=== PATIENT | male | born 1970 | race Hispanic/Latino ===

== ENCOUNTER 2020-06-07 10:37 | Inpatient (IN) | payer OTHER, SELFPAY ==
[2020-06-07] VITALS (10 sets, daily range): BP systolic 108–134; BP diastolic 65–82; PULSE 72–89; RESP 18–24; TEMP 37.1–37.6; O2SAT 92–100
--- NOTE | ~2020-06-07 | CT_ITS ---
EXAMINATION: CTA chest PE protocol EXAM DATE: 06/07/2020 11:42 INDICATION: Shortness of breath, chest plane. COVID 19. TECHNIQUE: Spiral CTA of the chest (pulmonary arteries) was performed with 100 cc Omnipaque 350 intr avenous contrast injection. Images were acquired during the pulmonary arterial phase. Coronal maxi mum intensity projection 3D-reconstructions were created by the technologist on dedicated workstation . Axial, coronal and sagittal reformatted images were reviewed. The dose-length product (DLP) for t his examination was 339.03 mGy-cm. The exposure was tailored according to patient size (auto mA exp osure control), and iterative reconstruction (ASIR) was used as additional dose reduction technique. There is no prior study for comparison. FINDINGS: There are no pulmonary emboli in the 1st through 3rd order (central and interlobar) pulmon nikko arteries. Some loss of attenuation in the segmental pulmonary arteries due to respiratory motion , but no intraluminal filling defects suspected. No thoracic aortic dissection. Bilateral patchy peripheral posterior predominant groundglass opacities Appearance is fairly typical of early stage COVID 19-induced acute lung injury. Less likely acute possibilities include influenz a, pulmonary edema or hemorrhage. Some chronic processes that can have this appearance include crypto genic organizing pneumonia, desquamative interstitial pneumonia, nonspecific interstitial pneumonia, drug toxicity, connective tissue disease. Please clinically correlate and test as appropriate. There are no pleural or pericardial effusions. Tracheobronchial tree is patent. There is no media stinal, hilar or axillary lymphadenopathy. There is no pneumothorax. Heart normal in size. No e vidence of coronary arterial calcification. Right liver lobe lesion with peripheral nodular complete enhancement consistent with hemangioma measuring about 2 cm. The bones are unremarkable. IMPRESSION: 1. No pulmonary emboli. 2. Patchy peripheral and posterior predominant groundglass opacities, appearance consistent with giv en diagnosis of COVID 19. Reviewed, dictated and finalized at location A. IMPRESSION: 1. No pulmonary emboli. 2. Patchy peripheral and posterior predominant groundglass opacities, appearan ce consistent with given diagnosis of COVID 19.
--- NOTE | ~2020-06-07 | XR_ITS ---
XR chest 1V portable DATE: 06/07/2020 11:24 INDICATION: Chest pain. Covid positive patient. TECHNIQUE: Portable upright AP chest on 06/07/2020 at 1119 hours COMPARISON: None FINDINGS: Normal heart size. Minimal infiltrate and/or atelectasis is suggested at the left lung base . The lungs otherwise appear clear. No pulmonary vascular congestion. There is slight if any pleural effusion. No pneumothorax. Other than scoliosis, which may be positional, no significant skeletal abnormality. IMPRESSION: Minimal infiltrate or atelectasis at the left lung base, left lower lobe Reviewed, dictated and finalized at location B.
--- NOTE | 2020-06-07 10:53 | ECG_ITS ---
Measurements Intervals [place] Rate: 85 P: 43 MI: 142 QRS: 27 QRSD: 92 T: 27 QT: 355 QTc: 423 Interpretive Statements SINUS RHYTHM POSSIBLE LEFT ATRIAL ENLARGEMENT INCOMPLETE RIGHT BUNDLE BRANCH BLOCK DELAYED PRECORDIAL R/S TRANSITION BASELINE ARTIFACT- I, III, AVR, AVL, AVF, V1-V3 BORDERLINE ECG Electronically Signed On 06-07-2020 11:26:15 CDT by Carlos Brito D.O.
[2020-06-07 11:04] LABS: Basophils Percent Auto 0.4 % (0.2-1.2); Eosinophils Percent Auto 0.4 % (0-4.4); Hematocrit 41.8 % (42.0-52.0); Hemoglobin 14.4 g/dL (14.0-18.0); Immature Granulocyte Absolute 0.01 K/mm3 (0.00-0.031); Immature Granulocyte Percent A 0.2 % (0-0.5); Lymphocytes Absolute Auto 0.99 K/mm3 (0.9-3.2); Lymphocytes Percent Auto 18.3 % (18.3-44.2); Mean Corpuscular HGB Conc 34.4 g/dl (32-36); Mean Corpuscular Hemoglobin 30.1 pg (26-34); Mean Corpuscular Volume 87.3 fl (80-100); Mean Platelet Volume 11.5 fl (7.4-10.4); Monocytes Absolute Auto 0.4 K/mm3 (0.1-0.6); Monocytes Percent Auto 6.7 % (2.6-8.5); Platelet Count Result 173 k/mm3 (150-375); Red Blood Count 4.79 M/mm3 (4.6-6.20); Red Cell Distribution Width 12.9 % (11.5-14.5); White Blood Count 5.4 K/mm3 (4.5-10.0)
[2020-06-07 11:14] LABS: INR 0.9; Partial Thromboplastin Time 32.6 SECONDS (22.3-36.8); Prothrombin Time 12.3 Seconds (11.1-14.7)
[2020-06-07 11:15] LABS: Blood Urea Nitrogen 14 mg/dL (9-20); Calcium 8.2 mg/dL (8.4-10.2); Carbon Dioxide 26 mmol/L (22-30); Chloride 104 mmol/L (98-107); Estimated CRCL calculation 86 ml/min; Estimated Glomerular Filt Rate > 60; Glucose 116 mg/dL (75-110); Potassium 3.5 mmol/L (3.4-5.0); Sodium 138 mmol/L (137-145)
[2020-06-07 11:24] LABS: D Dimer 0.37 ug/mL (<0.48)
[2020-06-07 11:28] LABS: Troponin I < 0.012 ng/mL (0.000-0.034)
[2020-06-07] MEDS: SODIUM CHLORIDE 0.9% IV 1,000 ML 999 ML IV CONT (11:49)
--- NOTE | 2020-06-07 12:04 | PC.NURSE ---
pT REFUSING TYLENOL AT THIS TIME. pT HAD 1000MG OF TYLENOL AT 1100 TODAY, JUSTYNA Navarro made aware.
--- NOTE | 2020-06-07 12:49 | ED.GENADULT ---
HPI - General Adult General Chief complaint: Chest Pain <Brisa Ulloa PA-C - Last Filed: 06/07/20 13:41> Stated complaint: Chest Pain, Headache <Brisa Ulloa PA-C - Last Filed: 06/07/20 13:41> Time Seen by Provider: 06/07/20 11:04 <Brisa Ulloa PA-C - Last Filed: 06/07/20 13:41> Source: patient and family <MIRIAM El Last Filed: 06/07/20 13:41> Mode of arrival: ambulatory <MIRIAM El Last Filed: 06/07/20 13:41> Limitations: no limitations <Brisa Ulloa PA-C - Last Filed: 06/07/20 13:41> History of Present Illness HPI narrative: Patient diagnosed with COVID19 on 06-03-2020 presents with chief complaint of shortness of breath and chest pain with breathing that began today. Patient has hypothyroidism but denies history of past heart attack or stroke. Patient denies any recent travel and states that he believes he contracted COVID from work. Patient denies wheezing. Patient states that he has had some low-grade fever that has not been present over the past few days and his states that she has been giving him Tylenol at home for headaches body aches and fever. She states that she has been trying to encourage hydration but the patient has been drinking with fluids over the past day or so. Patient reports diffuse frontal headache. He denies neck or back pain or loss of range of motion to spine. Patient denies nausea, vomiting, diarrhea or abdominal pain. <Brisa Ulloa PA-C - Last Filed: 06/07/20 13:41> Related Data Allergies/adverse reactions: Allergies Allergy/AdvReac Type Severity Reaction Status Date / Time No Known Allergies Allergy Verified 06/07/20 10:52 <Brisa Ulloa PA-C - Last Filed: 06/07/20 13:41> Review of Systems Review of Systems: Narrative: CONSTITUTIONAL: Denies fever, chills, or sweats. EYES: Denies visual changes, redness, or discharge. ENT: Denies rhinorrhea, congestion, sore throat, or otalgia. CARDIOVASCULAR: Reports chest pain with inspiration denies , palpitations, or edema. RESPIRATORY: Reports dyspnea and pain with inspiration denies cough GASTROINTESTINAL: Denies abdominal pain, nausea, vomiting, or diarrhea. GENITOURINARY: Denies dysuria or hematuria. SKIN: Denies rash or itching. MUSCULOSKELETAL: Denies back pain, joint pain, or myalgia. NEUROLOGIC: Reports diffuse frontal headache denies numbness, changes in vision or hearing, dizziness, or weakness. PSYCHIATRIC: Denies anxiety or depression. <Brisa Ulloa PA-C - Last Filed: 06/07/20 13:41> [facility] Past Medical History Medical History: Medical History Hypothyroidism <Brisa Ulloa PA-C - Last Filed: 06/07/20 13:41> Surgical History Surgical History: Surgical History (Updated 06/07/20 @ 21:32 by Jacquie Colon NP) History of tonsillectomy <Brisa Ulloa PA-C - Last Filed: 06/07/20 13:41> Family History Family History: Family History Grandparent Family history of thyroid disease Father Diabetes mellitus Family history of Rian's chorea Cerebrovascular accident Carcinoma of colon Hypertension Family history of malignant neoplasm of gastrointestinal tract Mother Asthma Family history of hearing loss <Brisa Ulloa PA-C - Last Filed: 06/07/20 13:41> Social History Social History: Social History (Updated 06/07/20 @ 21:33 by Jacquie Colon NP) Social History: patient is and he lives with his . His is his durable power attorney lawyer for healthcare. The patient desires to be a full code. The patient has 1 biological child and he has 2 step children. 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 He is a social drinker. He used to smoke. No marijuana or illicit drugs. Smoking status: Former smoker Tobacco type: cigarettes Smoking end date: 06/01/10 Alcohol
[2020-06-07] MEDS: ONDANSETRON INJ 4 MG/2 ML VIAL IV PUSH (14:07)
[2020-06-07 14:36] LABS: Troponin I < 0.012 ng/mL (0.000-0.034)
--- NOTE | 2020-06-07 15:37 | ADMGEN ---
This patient, Darshan Amos, was admitted to 3 Med Surg Room 326-01. Patient/family oriented to hospital policies and general routines including ID bracelet, bed and alarms, visiting hours, pain management, procedures, bathroom and other care routines, personal items, smoking policy, room service/diet, and visiting hours. Valuables list has been completed. Information on how to activate the Rapid Response Team has been discussed. Patient/Family are encouraged to report perceived risks to care and to ask questions if they do not understand what they are told or what they should do.
[2020-06-07 17:56] LABS: Troponin I < 0.012 ng/mL (0.000-0.034)
--- NOTE | 2020-06-07 21:28 | PM.IMHP ---
H&P: HPI History of Present Illness Chief complaint: COVID WITH DYSPNEA Narrative: Darshan Amos is a 49 year old male Who tested positive for covid 19 on 06/03/2020. He worked with another gentleman that was ill and found to be positive for COVID-19 as well. The patient has been short of breath. He said this is day 8 of his illness. He said that his also tested positive for it as well. He tells me he is now running a low-grade fever and has been taking Tylenol at home. He has not needed any oxygen until today. It was noted that down in the emergency room he had a 92% on room air but it was felt that it was air. So took his oxygen off and read his O2 saturation and it was 92%. I then started the patient on Decadron And remdesivir antiviral. as per protocol. The patient is requesting Tylenol. He has fever and chills. Decreased appetite decreased taste and decreased smell. He has a dry nonproductive cough as well. He has headaches. No nausea vomiting or diarrhea. His temperature was noted to be 98.7 upon arrival. Date of service 06/07/2020 Review of Systems Review of Systems: All systems reviewed & are unremarkable except as noted in HPI and below Constitutional: Constitutional: Reports as per HPI and Reports no additional constitutional complaints Eyes: Eyes: Reports as per HPI and Reports no additional eye complaints ENT: Reports system reviewed and no additional complaints, except as documented and Reports Normal hearing present Cardiovascular: Cardiovascular: Reports no additional cardiovascular complaints Respiratory: Respiratory: Reports no additional respiratory complaints and Reports no additional respiratory complaints Gastrointestinal: Gastrointestinal: Reports as per HPI and Reports no additional gastrointestinal complaints Musculoskeletal: Musculoskeletal: Reports no additional musculoskeletal complaints Integumentary/Breasts: Skin/Breast: Reports system reviewed and no additional complaints, except as docu and Reports as per HPI Neurologic: Reports system reviewed and no additional complaints, except as documented, Reports as per HPI and Reports Normal hearing present Psychiatric: Psychiatric: Reports no additional psychiatric complaints and Reports as per HPI Endocrine: Endocrine: Reports no additional endocrine complaints Hematologic/Lymphatic: Hematologic/Lymphatic: Reports no additional hematologic/lymphatic complaints Allergic/Immunologic: Allergic/Immunologic: Reports no additional allergic/immunologic complaints PMFSH Past Medical History Medical History Hypothyroidism Surgical History Surgical History (Updated 06/07/20 @ 21:32 by Jacquie Colon NP) History of tonsillectomy Family History Family History Grandparent Family history of thyroid disease Father Diabetes mellitus Family history of Rian's chorea Cerebrovascular accident Carcinoma of colon Hypertension Family history of malignant neoplasm of gastrointestinal tract Mother Asthma Family history of hearing loss Social History Social History (Updated 06/07/20 @ 21:33 by Jacquie Colon NP) Social History: patient is and he lives with his . His is his durable power state attorney for healthcare. The patient desires to be a full code. The patient has 1 biological child and he has 2 step children. 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 He is a social drinker. He used to smoke. No marijuana or illicit drugs. Smoking status: Former smoker Tobacco type: cigarettes Smoking end date: 06/01/10 Alcohol intake: never Substance use: never Substance use type: does not use Gender identity (if verbalized by the patient): Male Spiritual care concerns: No Meds Home Medications and Allergies Home Medications Medication Instructions Recorded
[2020-06-07 22:14] LABS: Alanine Aminotransferase 62 U/L (4-50); Estimated CRCL calculation 86 ml/min; Estimated Glomerular Filt Rate > 60
[2020-06-07] MEDS: DEXAMETHASONE SOD PHOS INJ 4 MG/ML VIAL 6 MG IV PUSH (22:27)
[2020-06-08] VITALS (14 sets, daily range): BP systolic 113–133; BP diastolic 64–79; PULSE 62–76; RESP 16–18; TEMP 36.1–37; O2SAT 91–98
[2020-06-08] MEDS: LEVOTHYROXINE SODIUM 75 MCG TABLET PO (06:10)
[2020-06-08 06:18] LABS: Basophils Percent Auto 0.6 % (0.2-1.2); Hematocrit 40.1 % (42.0-52.0); Hemoglobin 13.5 g/dL (14.0-18.0); Immature Granulocyte Absolute 0.01 K/mm3 (0.00-0.031); Immature Granulocyte Percent A 0.3 % (0-0.5); Lymphocytes Absolute Auto 0.56 K/mm3 (0.9-3.2); Lymphocytes Percent Auto 17.6 % (18.3-44.2); Mean Corpuscular HGB Conc 33.7 g/dl (32-36); Mean Corpuscular Hemoglobin 30.1 pg (26-34); Mean Corpuscular Volume 89.5 fl (80-100); Mean Platelet Volume 11.9 fl (7.4-10.4); Monocytes Absolute Auto 0.2 K/mm3 (0.1-0.6); Monocytes Percent Auto 5.6 % (2.6-8.5); Neutrophils Absolute Auto 2.4 K/mm3 (1.3-6.7); Neutrophils Percent Auto 75.9 % (45.5-73.1); Platelet Count Result 187 k/mm3 (150-375); Red Blood Count 4.48 M/mm3 (4.6-6.20); Red Cell Distribution Width 12.9 % (11.5-14.5); White Blood Count 3.2 K/mm3 (4.5-10.0)
[2020-06-08 06:34] LABS: Alanine Aminotransferase 59 U/L (4-50)
[2020-06-08 06:39] LABS: Alanine Aminotransferase 58 U/L (4-50); Alkaline Phosphatase 80 U/L (38-126); Aspartate Amino Transferase 50 U/L (17-59); Bilirubin,Total 0.2 mg/dL (0.2-1.3); Blood Urea Nitrogen 17 mg/dL (9-20); CRP 7.2 mg/dL (<1.0); Calcium 8.5 mg/dL (8.4-10.2); Carbon Dioxide 28 mmol/L (22-30); Chloride 105 mmol/L (98-107); Estimated CRCL calculation 86 ml/min; Estimated Glomerular Filt Rate > 60; Glucose 145 mg/dL (75-110); Magnesium 2.4 mg/dL (1.6-2.3); Potassium 4.3 mmol/L (3.4-5.0); Sodium 141 mmol/L (137-145)
[2020-06-08] MEDS: PANTOPRAZOLE SOD SESQUIHYDRATE 20 MG TAB PO (09:47)
[2020-06-08] MEDS: DEXAMETHASONE SOD PHOS INJ 4 MG/ML VIAL 6 MG IV PUSH (12:21)
--- NOTE | 2020-06-08 20:08 | PM.IMPN ---
Progress Note: A&P Assessment and Plan (1) COVID-19: Code(s): U07.1 - COVID-19 Status: Acute Assessment and Plan: -----Pt is off o2 and symptoms have improved. Because of his mild symptoms without o2 reqiureiments, remdesivir has been stopped to avoid potential side effects without much benefit at this point. Will continue decadron. If pt worsens remdesivir can be revisited but at that time. I have spoken to the patient about this and he agrees with treatment plan. Will observe overnight and likely d/c home tomorrow. d-dimber neg, crp midly elevated, AST normal, ALT very minimally elevated. CT reviewed. Prognosis is good. (2) Acute dyspnea: Code(s): R06.00 - Dyspnea, unspecified Status: Acute Assessment and Plan: -----resolved. (3) Hypothyroidism: Code(s): E03.9 - Hypothyroidism, unspecified Status: Acute Assessment and Plan: -----Continue levothyroxine. Time Spent With Patient Time with patient: 25 - 35 minutes Subjective Date/time seen: 06/08/20 20:08 Interval history: Pt is a 49 y/o male here for viral PNA, covid +. Pt feels much better today since being hosptilized. he has not felt this good since his symptoms began. He is not having any CP, nausea, vomiting, fevers, chills, abd pain and minimal SOB. We had a long discussion about his tx plan and severity of illness. He agreed. Review of Systems Review of Systems: All systems reviewed & are unremarkable except as noted in HPI and below Exam Narrative: Exam Narrative: General: Well developed well nourished patient resting in bed in NAD HEENT: normocephalic Neck: supple Neuro: Alert and oriented x4 CV:RRR Resp:CTA Abd: Soft, non distended. No pain to palpation. Positive bowel sounds Extremities: No swelling, erythema, or pain to palpation. Objective Data Vital Signs Vital Signs: Vital Signs - 24 hr 06/07/20 22:00 06/08/20 00:00 06/08/20 02:00 Temperature 99.6 F 98.6 F Pulse Rate 78 73 72 Respiratory Rate 18 16 Blood Pressure 125/65 127/70 Pulse Oximetry 96 97 06/08/20 03:24 06/08/20 03:26 06/08/20 04:00 Temperature Pulse Rate 68 Respiratory Rate Blood Pressure Pulse Oximetry 97 98 06/08/20 06:00 06/08/20 08:00 06/08/20 10:00 Temperature 98.3 F 97.0 F L Pulse Rate 68 67 69 Respiratory Rate 18 16 Blood Pressure 120/70 113/64 Pulse Oximetry 95 98 06/08/20 12:00 06/08/20 18:00 Temperature 97.4 F L 96.9 F L Pulse Rate 76 74 Respiratory Rate 18 16 Blood Pressure 128/72 119/67 Pulse Oximetry 93 97 Intake/Output Intake/Output: Intake & Output 06/05/20 06/06/20 06/07/20 06/08/20 23:59 23:59 23:59 23:59 Intake Total 1670 2080 Output Total 400 700 Balance 1270 1380 Meds/Results Medications: Active Medications Generic Name Dose Route Start Last Admin Trade Name Freq PRN Reason Stop Dose Admin Acetaminophen 650 mg 06/07/20 20:35 Tylenol Tablet PO Q4H PRN Mild Pain (1-3) or Fever Dexamethasone Sodium Phosphate 6 mg 06/07/20 21:50 06/08/20 12:21 Decadron 4 Mg/Ml Inj IV PUSH 6 mg DAILY JJ Administration Acetaminophen 1,000 mg in 100 mls @ 400 mls/hr 06/07/20 20:46 06/07/20 21:15 Ofirmev 1,000 Mg Ivpb IVPB 06/09/20 00:01 Infused Q6HR PRN Infusion Pain (4-6) Levothyroxine Sodium 75 mcg 06/08/20 06:30 06/08/20 06:10 Synthroid PO 75 mcg DAILY@0630 JJ Administration Pantoprazole Sodium 20 mg 06/08/20 09:00 06/08/20 09:47 Protonix PO 20 mg QAM JJ Administration Radiology Results: ITS Impressions Chest X-Ray 06/07/20 11:25 IMPRESSION: Minimal infiltrate or atelectasis at the left lung base, left lower lobe Chest CTA 06/07/20 11:49 IMPRESSION: 1. No pulmonary emboli. 2. Patchy peripheral and posterior predominant groundglass opacities, appearance consistent with given diagnosis of COVID 19. Labs Labs: Laboratory Results - last
[2020-06-09] VITALS: PULSE 56
[2020-06-09 02:00] VITALS: BP 116/71; PULSE 59; RESP 16; TEMP 36.4; O2SAT 93
[2020-06-09 04:00] VITALS: PULSE 60
[2020-06-09 06:00] VITALS: BP 115/69; PULSE 60; RESP 16; TEMP 36.5; O2SAT 94
[2020-06-09] MEDS: LEVOTHYROXINE SODIUM 75 MCG TABLET PO (06:31)
[2020-06-09 07:05] LABS: Alanine Aminotransferase 45 U/L (4-50); Albumin Level 3.8 g/dL (3.5-5.1); Alkaline Phosphatase 74 U/L (38-126); Anion Gap 13.9 mmol/L (7-16); Aspartate Amino Transferase 35 U/L (17-59); Bilirubin,Total 0.3 mg/dL (0.2-1.3); Blood Urea Nitrogen 18 mg/dL (9-20); CRP 4.4 mg/dL (<1.0); Calcium 8.6 mg/dL (8.4-10.2); Carbon Dioxide 24 mmol/L (22-30); Chloride 105 mmol/L (98-107); Estimated CRCL calculation 98 ml/min; Estimated Glomerular Filt Rate > 60; Glucose 151 mg/dL (75-110); Lactate Dehydrogenase 489 U/L (313-618); Potassium 3.9 mmol/L (3.4-5.0); Sodium 139 mmol/L (137-145)
[2020-06-09] MEDS: PANTOPRAZOLE SOD SESQUIHYDRATE 20 MG TAB PO (08:26)
[2020-06-09] MEDS: DEXAMETHASONE SOD PHOS INJ 4 MG/ML VIAL 6 MG IV PUSH (08:26)
[2020-06-09 09:15] VITALS: O2SAT 92
[2020-06-09 10:24] VITALS: TEMP 36.6
--- NOTE | 2020-06-09 11:14 | PM.DS ---
DS: Admitting Diagnosis Admitting Diagnosis Admitting Diagnosis: COVID-19 DS: Discharge Diagnosis Discharge Diagnosis (1) COVID-19: Code(s): U07.1 - COVID-19 Status: Acute Assessment and Plan: -----Pt was able to be weaned off o2 and symptoms have improved. Because of his mild symptoms without o2 reqiureiments, remdesivir was stopped after inital dose to avoid potential side effects without much benefit at this point. decadron was continued. Covid labs (CRP, ALT, LDH, d-dimer) were all normal on discharge except CRP which had improved from admission. he is to f/u with his pcp. (2) Acute dyspnea: Code(s): R06.00 - Dyspnea, unspecified Status: Acute Assessment and Plan: -----resolved. (3) Hypothyroidism: Code(s): E03.9 - Hypothyroidism, unspecified Status: Acute Assessment and Plan: -----Continue levothyroxine. (4) Acute respiratory failure with hypoxia: Code(s): J96.01 - Acute respiratory failure with hypoxia Status: Acute DS: Summary Hospital Course Reason for hospitalization: COVID-19 pneumonia Hospital Course: patient is a 49-year-old male who presented emergency room after being diagnosed with COVID outpatient with increasingly shortness of breath and chest pain. Vitals in the ER were stable, respiratory rate a little elevated 24. White blood cell count mildly low 3.2. BMP within normal limits. Ferritin and D-dimer were normal. ALT was only mildly high at 59. CRP mildly high at 7.2. CTA of the chest showed no pulmonary emboli with patchy peripheral and posterior ground-glass opacities consistent with COVID-19. patient was admitted to the hospitalist service and provided supplemental oxygen. He was initially placed on 1 does of remdesivir and dexamethasone but because of his mild symptoms, the remdesivir was discontinued. He was continued on dexamethasone and did well with this treatment. The day of discharge she was walking around the room without any shortness of breath or oxygen. He said he felt better than he had in days and was ready to go home. Patient was educated about the worrisome signs and symptoms to come back to emergency room for and was discharged in stable condition. He was educated on quarantine guidelines. Status at Discharge Functional status at discharge: independent ambulation Overall status at discharge: patient is back to baseline Time Spent with Patient Time attestation: Total time spent providing and/or coordinating discharge services:36 min Time spent: Greater than 30 minutes Exam Narrative: Exam Narrative: General: Well developed well nourished patient resting in bed in NAD HEENT: normocephalic Neck: supple Neuro: Alert and oriented x4 CV:RRR Resp:CTA Abd: Soft, non distended. No pain to palpation. Positive bowel sounds Extremities: No swelling, erythema, or pain to palpation. DS: Data Data Completed and Pending Labs on day of discharge: Labs from last 24 hours 06/09/20 06/09/20 06:21 06:21 Sodium 139 Potassium 3.9 Chloride 105 Carbon Dioxide 24 Anion Gap 13.9 BUN 18 Creatinine 0.70 Estim Creat Clear Calc 98 Estimated GFR > 60 Glucose 151 H Calcium 8.6 Ferritin 238.00 Total Bilirubin 0.3 Direct Bilirubin 0.0 AST 35 ALT 45 Alkaline Phosphatase 74 Lactate Dehydrogenase 489 C-Reactive Protein 4.4 H Total Protein 7.0 Albumin 3.8 Discharge Plan Discharge Attending physician on discharge: Stevie Rob Consulting providers: Brisa Ulloa Discharging Clinician: Mary Calhoun Patient Disposition: Home, Self-Care Activity: as tolerated Diet: regular Discharge Instructions: -Take all of your medications even if you start to feel better - follow up with your primary care physician in 1-2 weeks about this stay - continue isolating yourself and your family. According to the CDC recommendations, you
== END 2020-06-09 13:00 | disposition home or self-care (01) | DRG 177 ==
LOC: ANHED 13:14 → ANH3MEDSUR 13:25
PROVIDERS: Nurse Practitioner; Physician Assistant; Admitting Provider Family Medicine; Emergency Provider Emergency Medicine; PCP Family Medicine; Visit Provider Family Medicine
DX: U07.1 COVID-19 (principal); J96.01 Acute respiratory failure with hypoxia; J12.89 Other viral pneumonia; E03.9 Hypothyroidism, unspecified; Z87.891 Personal history of nicotine dependence
CPT/HCPCS: 36415; 71045; 71275; 80048; 80053; 80076; 82565; 82728; 83615; 83735; 84443; 84460; 84484; 85025; 85380; 85610; 85730; 86140; 93005; 96360; 99285; A9270; G0378; J0131; J1100; J2405; J7030; J7050; Q9967

== ENCOUNTER → 2020-09-12 08:59 | Outpatient (CLI) | payer OTHER, SELFPAY ==
--- NOTE | ~2020-09-12 | CT_ITS ---
EXAMINATION: CT abdomen pelvis w con DATE: 09/12/2020 09:24 INDICATION: Left lower quadrant abdominal pain. TECHNIQUE: Computed tomography (CT) of the abdomen and pelvis was performed with 100 mL Omnipaque-350 intravenous contrast. Automated exposure control and iterative reconstruction technique were employe d. The dose-length product was 664.50 mGy-cm. COMPARISON: 01/11/2019 and 06/07/2020 FINDINGS: Unchanged 4-5 mm likely noncalcified granuloma in the right lower lobe. Minimal dependent atelectasis in the bilateral lower lobes. Heart size is normal. No pericardial or pleural effusion. Approximatel y 2.7 x 2.0 cm avidly enhancing hemangioma in the right hepatic lobe with during degrees of periphera l puddling of contrast on the current and prior studies. Gallbladder, spleen, pancreas, bilateral adr enal glands and kidneys are normal. There are few scattered colonic diverticula without adjacent infl ammatory change to suggest diverticulitis. No abnormal bowel wall thickening or obstruction. Normal g as-filled appendix which extends cephalad along the lateral margin of the second portion of the duode num. Suggestion of subtle stranding at the periphery of the otherwise normal-appearing bladder raisin g possibility of cystitis. No free intraperitoneal gas or fluid. No pathologically enlarged abdominal or pelvic lymphadenopathy. Mild thoracolumbar levocurvature with mild spondylosis. IMPRESSION: 1. Subtle stranding in the fat surrounding the bladder which could be related to cystitis. Correlate with urinalysis. 2. No other acute intra-abdominal/pelvic process. Reviewed, dictated and finalized at location B. IMPRESSION: 1. Subtle stranding in the fat surrounding the bladder which could be related t o cystitis. Correlate with urinalysis. 2. No other acute intra-abdominal/pelvic process.
== END ==
PROVIDERS: PCP Family Medicine; Visit Provider Surgery
DX: R10.32 Left lower quadrant pain (principal)
CPT/HCPCS: 74177; Q9967

== ENCOUNTER → 2020-09-20 10:50 | Outpatient (CLI) | payer OTHER, SELFPAY ==
--- NOTE | ~2020-09-20 | US_ITS ---
EXAMINATION: US abdomen limited EXAM DATE: 09/20/2020 12:02 INDICATION: epigastric abd pain R10.13 - Epigastric pain . TECHNIQUE: Multiple grayscale and Doppler images of the abdomen right upper quadrant were obtained (b y a technologist who performed the scan) and subsequently reviewed. Correlation is made to CT abdomen 09/12/2020, and another 01/11/2019. FINDINGS: The pancreatic head and body are normal in appearance. The pancreatic tail is not visualized. The l iver has normal echogenicity and contour. There is focal liver lesion measuring 2 cm. Liver lesions are nonspecific by ultrasound, but correlating with prior CT scans, most likely hemangioma. There is no evidence of intrahepatic biliary duct dilation. Portal venous flow was seen in the hepatopedal, normal direction and has normal Doppler waveform. No right-sided hydronephrosis. Common bile duct measures 4 mm, which is normal. The gallbladder wall is normal in thickness, with ex pected amount of distention. No sonographic evidence of pericholecystic fluid. There is no cholelit hiases. Several gallbladder polyps up to 4 mm, not clinically significant finding. Technologist donovan rming exam reports patient did not demonstrate sonographic Ann's sign. Please note that this sign is less reliable in patients who have received pain medication. IMPRESSION: No clinically significant findings. Reviewed, dictated and finalized at location B. [employer]PER[employer]
== END ==
PROVIDERS: PCP Family Medicine; Visit Provider Surgery
DX: R10.13 Epigastric pain (principal)
CPT/HCPCS: 76705

== ENCOUNTER 2021-10-06 10:23 | Emergency (ER) | payer OTHER, SELFPAY ==
[2021-10-06 10:34] VITALS: BP 139/71; PULSE 78; RESP 16; TEMP 36.1; O2SAT 99
--- NOTE | 2021-10-06 10:39 | ED.NAVMDI ---
HPI - Nausea/Vomiting/Diarrhea General Chief complaint: Nausea/Vomiting/Diarrhea Stated complaint: upset stomach/diarrhea/sore throat Time Seen by Provider: 10/06/21 10:32 Source: patient, RN notes reviewed and old records reviewed History of Present Illness HPI Narrative: 51-year-old male presents to [facility] with epigastric burning, nausea and diarrhea since Saturday. Patient started after his cooked a very greasy high-fat meal. Has felt feverish all day yesterday with increased burning. Has taken Tums with no relief. Complains of right upper quadrant, epigastric pain. Pain with palpation. Has a history of GERD, low testosterone and thyroid issues. Has had Covid in June 2020, has had a full immunization in January 2021 MD elicited complaint: nausea, vomiting, diarrhea and abdominal pain Related Data Allergies Allergy/AdvReac Type Severity Reaction Status Date / Time No Known Allergies Allergy Verified 10/06/21 10:44 Review of Systems Review of Systems: All systems reviewed & are unremarkable except as noted in HPI and below Constitutional: Constitutional: Reports as per HPI, Denies chills, Reports fever(s) and Denies weakness Eyes: Eyes: Reports no additional eye complaints ENT: Reports system reviewed and no additional complaints, except as documented Cardiovascular: Cardiovascular: Reports no additional cardiovascular complaints and Denies chest pain Respiratory: Respiratory: Reports no additional respiratory complaints, Denies cough, Denies dyspnea and Denies wheezing Gastrointestinal: Gastrointestinal: Reports as per HPI, Reports abdominal pain, Denies constipation, Reports diarrhea, Reports nausea and Reports vomiting Genitourinary: Genitourinary: Reports no additional male genitourinary complaints Musculoskeletal: Musculoskeletal: Reports no additional musculoskeletal complaints Integumentary/Breasts: Skin/Breast: Reports system reviewed and no additional complaints, except as docu Neurologic: Reports system reviewed and no additional complaints, except as documented Psychiatric: Psychiatric: Reports no additional psychiatric complaints Allergic/Immunologic: Allergic/Immunologic: Reports no additional allergic/immunologic complaints [facility] Past Medical History Medical History (Updated 10/06/21 @ 10:49 by Tara Chandler) COVID-19 Former smoker GERD (gastroesophageal reflux disease) Hypothyroidism Surgical History Surgical History History of tonsillectomy Family History Family History Grandparent Family history of thyroid disease Father Diabetes mellitus Family history of [place]'s chorea Cerebrovascular accident Carcinoma of colon Hypertension Family history of malignant neoplasm of gastrointestinal tract Mother Asthma Family history of hearing loss Social History Social History Social History: patient is and he lives with his . His is his durable power trademark attorney for healthcare. The patient desires to be a full code. The patient has 1 biological child and he has 2 step children. 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 He is a social drinker. He used to smoke. No marijuana or illicit drugs. Smoking status: Former smoker Tobacco type: cigarettes Smoking end date: 06/01/10 Alcohol intake: never Substance use: never Substance use type: does not use Additional occupation/education comments: Car sales Gender identity (if verbalized by the patient): Male Spiritual care concerns: No Comments At the time of my signature, I reviewed and agree with the nursing past medical, surgical, social, and family history. There is no relevant family history pertinent to the patient complaint. Exam Const: General: healthy appearing, no acute distress and alert Nutritional Appearan
== END 2021-10-06 10:47 | disposition short-term general hospital (02) ==
PROVIDERS: Emergency Provider Nurse Practitioner; PCP Family Medicine
DX: R10.31 Right lower quadrant pain (principal); Z87.891 Personal history of nicotine dependence; K21.9 Gastro-esophageal reflux disease without esophagitis; E03.9 Hypothyroidism, unspecified; Z86.16 Personal history of COVID-19
CPT/HCPCS: 99213; G0463

== ENCOUNTER 2021-10-06 11:11 | Emergency (ER) | payer OTHER, SELFPAY ==
--- NOTE | ~2021-10-06 | CT_ITS ---
EXAMINATION: CT abdomen pelvis w con DATE: 10/06/2021 14:07 INDICATION: Epigastric abdominal pain, fever, nausea TECHNIQUE: Computed tomography (CT) of the abdomen and pelvis was performed with 100 cc Omnipaque 350 intravenous contrast. Automated exposure control and iterative reconstruction technique were employe d. Exam dose: 330.74 mGy-cm total exam DLP. COMPARISON: 09/12/2020 CT abdomen pelvis FINDINGS: 5 mm peripheral lateral right lower lobe nodule (series 4 image 7). The lung bases consolid ation. Normal heart size. No pericardial or pleural effusion. Very small probable left hepatic cyst the liver, gallbladder, bile ducts, pancreas, pancreatic duct a nd spleen are otherwise unremarkable. Normal morphology of the adrenal glands. No renal mass lesion or urinary tract calculus or hydroureteronephrosis. The urinary bladder is unrem arkable. Normal prostate gland. Normal caliber of the abdominal aorta. No intraperitoneal or retroperitoneal or pelvic mass lesion or adenopathy or ascites. Normal appendix. Minimal colonic diverticulosis; no CT evidence of diverticulitis. No bowel obstructi on, bowel wall thickening, pneumatosis or intraperitoneal free air. No suspicious osteolytic or osteoblastic lesions. IMPRESSION: Normal appendix Minimal colonic diverticulosis Reviewed, dictated and finalized at [facility]. Reviewed, dictated and finalized at [facility]. L [facility]
[2021-10-06 11:26] VITALS: BP 116/77; PULSE 80; RESP 14; TEMP 36.1; O2SAT 99
[2021-10-06 11:47] LABS: Basophils Absolute Auto 0.1 K/mm3 (0.0-0.1); Eosinophils Absolute Auto 0.3 K/mm3 (0-0.3); Eosinophils Percent Auto 5.8 % (0-4.4); Hematocrit 42.4 % (42.0-52.0); Hemoglobin 14.5 g/dL (14.0-18.0); Immature Granulocyte Absolute 0.01 K/mm3 (0.00-0.031); Immature Granulocyte Percent A 0.2 % (0-0.5); Lymphocytes Percent Auto 25.5 % (18.3-44.2); Mean Corpuscular HGB Conc 34.2 g/dl (32-36); Mean Corpuscular Volume 90.6 fl (80-100); Mean Platelet Volume 10.7 fl (7.4-10.4); Monocytes Absolute Auto 0.6 K/mm3 (0.1-0.6); Monocytes Percent Auto 10.4 % (2.6-8.5); Neutrophils Absolute Auto 3.4 K/mm3 (1.3-6.7); Neutrophils Percent Auto 57.1 % (45.5-73.1); Platelet Count Result 218 k/mm3 (150-375); Red Blood Count 4.68 M/mm3 (4.6-6.20); Red Cell Distribution Width 12.9 % (11.5-14.5); White Blood Count 5.9 K/mm3 (4.5-10.0)
[2021-10-06 11:59] LABS: Alanine Aminotransferase 18 U/L (4-50); Albumin Level 4.3 g/dL (3.5-5.1); Alkaline Phosphatase 71 U/L (38-126); Anion Gap 8 mmol/L (8-16); Aspartate Amino Transferase 23 U/L (17-59); Bilirubin,Total 0.6 mg/dL (0.2-1.3); Blood Urea Nitrogen 21 mg/dL (9-20); Calcium 8.5 mg/dL (8.4-10.2); Carbon Dioxide 27 mmol/L (22-30); Chloride 103 mmol/L (98-107); Estimated CRCL calculation 69 ml/min; Estimated Glomerular Filt Rate > 60; Glucose 114 mg/dL (65-110); Lipase 88 U/L (23-300); Potassium 3.8 mmol/L (3.4-5.0); Sodium 138 mmol/L (137-145)
[2021-10-06 12:32] LABS: Add Urine Microscopic? YES; Appearance Urine Cloudy (Clear); Bilirubin Urine 1+ (Negative); Blood Urine Negative (Negative); Calcium Oxalate Crystals Urine Present /hpf; Color Urine Amber (Yellow); Glucose Urine UA Negative (Negative); Ketones Urine Trace mg/dL (Negative); Leukocyte Esterase Ur Negative LEU/UL (Negative); Mucus Urine Heavy /lpf; Nitrate Urine Negative (Negative); Protein Urine 2+ mg/dL (Negative); WBC Urine 0-3 /hpf
[2021-10-06 12:33] LABS: Specific Grav Ur 1.045 (1.001-1.035)
[2021-10-06 13:10] VITALS: BP 128/82; PULSE 64; RESP 14; TEMP 36.6; O2SAT 99
--- NOTE | 2021-10-06 13:54 | ECG_ITS ---
Measurements Intervals [place] Rate: 60 P: 49 [place]: 150 QRS: 2 QRSD: 106 T: 6 QT: 408 QTc: 410 Interpretive Statements SINUS RHYTHM INCOMPLETE RIGHT BUNDLE BRANCH BLOCK DELAYED PRECORDIAL R/S TRANSITION BORDERLINE T WAVE ABNORMALITY- INFERIOR LEADS BORDERLINE ECG Electronically Signed On 10-06-2021 15:07:04 GROUT PUMP OPERATOR by Carlos Brito D.O.
--- NOTE | 2021-10-06 13:57 | ED.ABDPAIN ---
HPI - Abdominal Pain General Chief Complaint: Abdominal Pain Stated Complaint: RUQ pain Time Seen by Provider: 10/06/21 13:08 Source: patient Mode of arrival: ambulatory Limitations: no limitations History of Present Illness HPI narrative: This is a 51 year old male that presents to the ER for epigastric abdominal pain ongoing over the last couple of days. Reports the pain is burning in nature. Associated with nausea. He was prescribed omeprazole for reflux in the past, but he has not taken this for months. Reports last night he has a fever. Denies vomiting, dysuria, or hematuria. Related Data Allergies Allergy/AdvReac Type Severity Reaction Status Date / Time No Known Allergies Allergy Verified 10/06/21 10:44 Review of Systems Review of Systems: CONSTITUTIONAL: Reports fever CARDIOVASCULAR: Denies chest pain RESPIRATORY: Denies dyspnea. GASTROINTESTINAL: Reports abdominal pain, nausea, and diarrhea. Denies vomiting GENITOURINARY: Denies dysuria or hematuria. All systems reviewed & are unremarkable except as noted in HPI and below PMFSH Past Medical History Medical History (Updated 10/06/21 @ 15:59 by Padmini Stephens PA-C) COVID-19 Former smoker GERD (gastroesophageal reflux disease) Hypothyroidism Surgical History Surgical History History of tonsillectomy Family History Family History Grandparent Family history of thyroid disease Father Diabetes mellitus Family history of Rian's chorea Cerebrovascular accident Carcinoma of colon Hypertension Family history of malignant neoplasm of gastrointestinal tract Mother Asthma Family history of hearing loss Social History Social History Social History: patient is and he lives with his . His is his durable power commercial real estate attorney for healthcare. The patient desires to be a full code. The patient has 1 biological child and he has 2 step children. 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 He is a social drinker. He used to smoke. No marijuana or illicit drugs. Smoking status: Former smoker Tobacco type: cigarettes Smoking end date: 06/01/10 Alcohol intake: never Substance use: never Substance use type: does not use Additional occupation/education comments: Car sales Gender identity (if verbalized by the patient): Male Spiritual care concerns: No Exam Narrative: GENERAL: Well-appearing, well-nourished, and in no acute distress. HEAD: Normocephalic, atraumatic. EYES: EOMI. CHEST: Clear to auscultation. No respiratory distress. No wheezes rales or rhonchi HEART: Regular rate and rhythm. No murmur heard. Normal peripheral pulses. ABDOMEN: Soft, nondistended, normal active bowel sounds. Tender to palpation in the epigastrium, without guarding. No CVA tenderness EXTREMITIES: Normal range of motion. No edema. SKIN: Warm, dry, no rash. NEURO: No focal deficits. Alert and oriented x3. PSYCH: Normal mood and affect Course Vital Signs Vital signs: Vital Signs Temperature 96.9 F L 10/06/21 11:26 Pulse Rate 80 10/06/21 11:26 Respiratory Rate 14 10/06/21 11:26 Blood Pressure 116/77 10/06/21 11:26 Pulse Oximetry 99 10/06/21 11:26 Temperature 97.8 F 10/06/21 13:10 Pulse Rate 64 10/06/21 13:10 Respiratory Rate 14 10/06/21 13:10 Blood Pressure 128/82 10/06/21 13:10 Pulse Oximetry 99 10/06/21 13:10 MDM - Abdominal Pain MDM Narrative Medical decision making narrative: Patient presents to the emergency department for epigastric pain. He is afebrile and nontoxic-appearing. Vitals are stable. CBC is without leukocytosis. Metabolic panel and lipase without concerning findings. UA with evidence of some dehydration. Patient hydrated while in the ED. CT scan of the abdomen and pelvis is without acute findings. EKG is wit
[2021-10-06] MEDS: SODIUM CHLORIDE 0.9% IV 1,000 ML 999 ML IV CONT (14:11)
[2021-10-06] MEDS: PANTOPRAZOLE SODIUM IV 40 MG VIAL IV PUSH (14:11)
[2021-10-06] MEDS: ONDANSETRON INJ 4 MG/2 ML VIAL IV PUSH (14:11)
--- NOTE | 2021-10-06 15:40 | PC.NURSE ---
pt wants to leave. nausea and abd burning reduced. provider notified
[2021-10-06 16:09] VITALS: BP 118/74; PULSE 62; RESP 18; O2SAT 100
== END 2021-10-06 16:10 | disposition home or self-care (01) ==
PROVIDERS: Emergency Provider Emergency Medicine; PCP Family Medicine
DX: R10.13 Epigastric pain (principal); K21.9 Gastro-esophageal reflux disease without esophagitis; E03.9 Hypothyroidism, unspecified; Z86.16 Personal history of COVID-19; Z87.891 Personal history of nicotine dependence
CPT/HCPCS: 36415; 74177; 80053; 81001; 83690; 85025; 93005; 96361; 96374; 96375; 99284; C9113; J2405; J7030; Q9967

== ENCOUNTER 2022-04-10 09:52 | Outpatient (CLI) | payer OTHER, SELFPAY | END 2022-04-10 09:53 | disposition home or self-care (01) | LOC: ANHLAB 09:54 | PROVIDERS: PCP Family Medicine; Visit Provider Family Medicine | DX: E03.9 Hypothyroidism, unspecified (principal) | CPT/HCPCS: 36415; 84443 ==

== ENCOUNTER 2022-07-26 12:51 | Day surgery (SDC) | payer OTHER, SELFPAY ==
[2022-07-10 13:29] VITALS: BMI 26.0
--- NOTE | 2022-07-26 13:35 | P.PNAN_ITS ---
Anes - Initial Pre Proc Eval Procedure: Operation Date: 07/26/22 14:30 Proposed Procedures p Screening Colonoscopy - Kishore Christie MD Date/Time: 07/26/22 13:35 Surgeon: Kishore Christie MD Pre Op Diagnosis: Neoplasm Screening Patient Data Age: 52 Gender: M Height: 1.65 m Weight: 71 kg Allergies Allergy/AdvReac Type Severity Reaction Status Date / Time No Known Allergies Allergy Verified 07/10/22 13:08 Home Medications Medication Instructions Recorded Confirmed Type levothyroxine 137 mcg tablet 137 mcg PO DAILY #90 tabs 04/19/22 07/10/22 Rx (Synthroid) sodium sul 1.479 gram-potas ch See Rx Instructions PO PER PKG DIR 04/26/22 Rx 0.188 gram-magnes sul 0.225 gram #24 tabs tablet (Sutab) omeprazole 20 mg capsule,delayed 20 mg PO DAILY 07/10/22 07/10/22 History release Patient hx anesthesia problems: none Family hx anesthesia problems: none Results Review: All pre-operative results and documents have been reviewed as part of the pre-operative evaluation. [facility] Past Medical History Medical History COVID-19 Former smoker GERD (gastroesophageal reflux disease) Hypothyroidism Surgical History Surgical History History of tonsillectomy Family History Family History Grandparent Family history of thyroid disease Father Diabetes mellitus Family history of Rian's chorea Cerebrovascular accident Carcinoma of colon Hypertension Family history of malignant neoplasm of gastrointestinal tract Mother Asthma Family history of hearing loss Social History Social History Social History: patient is and he lives with his . His is his durable power deputy attorney general for healthcare. The patient desires to be a full code. The patient has 1 biological child and he has 2 step children. 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 He is a social drinker. He used to smoke. No marijuana or illicit drugs. Smoking status: Former smoker Tobacco type: cigarettes Smoking end date: 06/01/10 Alcohol intake: current Drinks per week: 2 Substance use: never Substance use type: does not use Living arrangements: with family Additional occupation/education comments: Car sales Gender identity (if verbalized by the patient): Male Spiritual care concerns: No Anes - Eval Final PreProcedure Day of Procedure 07/26/22 13:35 Patient weight: normal Heart: regular rate and rhythm Lungs: clear to auscultation Airway: Mallampati scale class II Neurological: alert and oriented ASA classification: II Emergent: no Anesthetic plan: proceed Anesthesia type and monitoring: general GIVS and standard monitoring Results Review: All pre-operative results and documents have been reviewed as part of the pre- operative evaluation. Informed Consent: The patient's anesthetic plan and its attendant risks and benefits were discussed with the patient/family/POA. Questions were solicited and answers provided to the satisfaction of the patient/family/POA.
[2022-07-26] MEDS: LACTATED RINGERS 1,000 ML 150 ML IV CONT (13:50)
--- NOTE | 2022-07-26 13:55 | PM.IMHP ---
H&P: HPI History of Present Illness Date/Time: 07/26/22 13:55 Chief Complaint: Neoplasia screening. Narrative: This is a 52-year-old male patient presents for screening colonoscopy. Patient's current weight appetite and bowel movements are normal. He denies abdominal pain. He has had no bleeding. Family history is noncontributory. Patient did have a colonoscopy several years ago he is somewhat uncertain whether polyps were identified. Review of Systems Review of Systems: Review of systems noncontributory. [facility] Past Medical History Medical History COVID-19 Former smoker GERD (gastroesophageal reflux disease) Hypothyroidism Surgical History Surgical History History of tonsillectomy Family History Family History Grandparent Family history of thyroid disease Father Diabetes mellitus Family history of [place]'s chorea Cerebrovascular accident Carcinoma of colon Hypertension Family history of malignant neoplasm of gastrointestinal tract Mother Asthma Family history of hearing loss Social History Social History Social History: patient is and he lives with his . His is his durable power can machine operator for healthcare. The patient desires to be a full code. The patient has 1 biological child and he has 2 step children. 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 He is a social drinker. He used to smoke. No marijuana or illicit drugs. Smoking status: Former smoker Tobacco type: cigarettes Smoking end date: 06/01/10 Alcohol intake: current Drinks per week: 2 Substance use: never Substance use type: does not use Living arrangements: with family Additional occupation/education comments: Car sales Gender identity (if verbalized by the patient): Male Spiritual care concerns: No Meds Home Medications and Allergies Home Medications Medication Instructions Recorded Confirmed Type levothyroxine 137 mcg tablet 137 mcg PO DAILY #90 tabs 04/19/22 07/26/22 Rx (Synthroid) omeprazole 20 mg capsule,delayed 20 mg PO DAILY 07/10/22 07/26/22 History release Allergies Allergy/AdvReac Type Severity Reaction Status Date / Time No Known Allergies Allergy Verified 07/26/22 13:43 Exam Narrative: Physical exam reveals patient to be alert. Vital signs stable. HEENT exam is unremarkable. Patient is anicteric. Lungs are clear to auscultation and percussion. Heart is without murmur or extra sounds. Abdominal exam bowel sounds present soft nontender with no hepatosplenomegaly. Digital external rectal exam is normal. Assessment and Plan Assessment and plan (1) Colon cancer screening: Code(s): Z12.11 - Encounter for screening for malignant neoplasm of colon Status: Acute Assessment and Plan: Patient presents today for screening colonoscopy. Appears to be at average risk for colon polyps. Further recommendations will be given after endoscopy.
[2022-07-26 14:04] VITALS: BP 134/82; PULSE 67; RESP 16; TEMP 36.8; O2SAT 100; BMI 26.4
[2022-07-26 14:40] VITALS: BP 98/65; PULSE 63; RESP 16; O2SAT 98
[2022-07-26 14:50] VITALS: BP 106/68; PULSE 58; RESP 15; O2SAT 98
[2022-07-26 15:00] VITALS: BP 113/78; PULSE 51; RESP 15; O2SAT 100
--- NOTE | 2022-07-26 15:01 | WPDANESPN ---
Anes - Prog Note Post-Op Date/Time: 07/26/22 15:01 Cardiovascular status: normal Respiratory status: normal Airway patency: baseline Mental status: baseline Post-Op hydration status: normal Vital Signs: Last Vital Signs Temp 36.8 C 07/26/22 14:04 Pulse 63 07/26/22 14:40 Resp 16 07/26/22 14:40 BP 106/68 07/26/22 14:50 Pulse Ox 98 07/26/22 14:50 O2 Del Method Room Air 07/26/22 14:50 Pain Score (VAS): 0/10 I/O: Intake & Output 07/25/22 07/26/22 07/26/22 23:59 07:59 15:59 Intake Total 400 Balance 400 Patient Feedback: Patient satisfied with anesthetic care.
== END 2022-07-26 15:25 | disposition home or self-care (01) ==
PROVIDERS: PCP Family Medicine; Visit Provider Internal Medicine Gastroenterology
PROC: 0DJD8ZZ Inspection of Lower Intestinal Tract, Via Natural or Artificial Opening Endoscopic (ICD-10-PCS; CPT 45378; principal; 2022-07-26 14:30)
DX: Z12.11 Encounter for screening for malignant neoplasm of colon (principal)
CPT/HCPCS: 45378

== ENCOUNTER 2022-10-16 08:34 | Outpatient (CLI) | payer OTHER, SELFPAY ==
[2022-10-16 19:47] LABS: Prostate Specific Antigen 0.8 ng/mL (< OR = 4.0); Thyroid Stimulating Hormone < 0.015 uIU/mL (0.465-4.680)
[2022-10-20 13:26] LABS: Testosterone Total 450 ng/dL (250-1100)
== END 2022-10-16 08:35 | disposition home or self-care (01) ==
LOC: ANHGOSHLAB 08:39
PROVIDERS: PCP Family Medicine; Visit Provider Family Medicine
DX: E03.9 Hypothyroidism, unspecified (principal); E29.1 Testicular hypofunction
CPT/HCPCS: 36415; 84153; 84403; 84443; G0103

== ENCOUNTER 2023-04-17 08:48 | Outpatient (CLI) | payer OTHER, SELFPAY ==
[2023-04-17 16:48] LABS: Thyroid Stimulating Hormone 0.183 uIU/mL (0.465-4.680)
[2023-04-17 16:54] LABS: Free T4 Free Thyroxine 1.26 ng/mL (0.78-2.19)
== END 2023-04-17 08:49 | disposition home or self-care (01) ==
LOC: ANHGOSHLAB 08:51
PROVIDERS: PCP Family Medicine; Visit Provider Physician Assistant
DX: E03.9 Hypothyroidism, unspecified (principal); Z79.899 Other long term (current) drug therapy
CPT/HCPCS: 36415; 84439; 84443

== ENCOUNTER 2025-01-18 07:57 | Outpatient (CLI) | payer OTHER, SELFPAY ==
[2025-01-18 14:02] LABS: Basophils Absolute Auto 0.1 K/mm3 (0.0-0.1); Basophils Percent Auto 1.3 % (0.2-1.2); Eosinophils Absolute Auto 0.3 K/mm3 (0-0.3); Eosinophils Percent Auto 4.5 % (0-4.4); Hematocrit 44.9 % (42.0-52.0); Hemoglobin 14.8 g/dL (14.0-18.0); Immature Granulocyte Absolute 0.01 K/mm3 (0.00-0.031); Immature Granulocyte Percent A 0.2 % (0-0.5); Lymphocytes Absolute Auto 1.75 K/mm3 (0.9-3.2); Mean Corpuscular Volume 90.9 fl (80-100); Mean Platelet Volume 11.7 fl (7.4-10.4); Monocytes Absolute Auto 0.6 K/mm3 (0.1-0.6); Monocytes Percent Auto 10.1 % (2.6-8.5); Neutrophils Absolute Auto 3.3 K/mm3 (1.3-6.7); Neutrophils Percent Auto 54.9 % (45.5-73.1); Platelet Count Result 232 k/mm3 (150-375); Red Blood Count 4.94 M/mm3 (4.6-6.20); Red Cell Distribution Width 13.5 % (11.5-14.5)
[2025-01-18 19:39] LABS: Alanine Aminotransferase 24 U/L (6-50); Alkaline Phosphatase 59 U/L (38-126); Anion Gap 7 mmol/L (4-12); Aspartate Amino Transferase 57 U/L (17-59); Bilirubin,Total 0.5 mg/dL (0.2-1.3); Blood Urea Nitrogen 26 mg/dL (9-20); Calcium 8.5 mg/dL (8.4-10.2); Carbon Dioxide 29 mmol/L (22-30); Chloride 105 mmol/L (98-107); Cholesterol 153 mg/dL (0-200); Estimated Glomerular Filt Rate > 60; Glucose 106 mg/dL (65-110); HDL Direct 38 mg/dL; Potassium 4.2 mmol/L (3.4-5.0); Sodium 141 mmol/L (137-145); Triglycerides 47 mg/dL (<150)
[2025-01-18 19:51] LABS: LDL Cholesterol Direct 105 mg/dL
== END 2025-01-18 07:58 | disposition home or self-care (01) ==
LOC: ANHGOSHLAB 07:58
PROVIDERS: PCP Family Medicine; Visit Provider Nurse Practitioner Family
DX: E74.39 Other disorders of intestinal carbohydrate absorption (principal); E66.3 Overweight; E03.9 Hypothyroidism, unspecified; D72.18 Eosinophilia in diseases classified elsewhere; G47.00 Insomnia, unspecified; Z12.5 Encounter for screening for malignant neoplasm of prostate
CPT/HCPCS: 36415; 80053; 80061; 84153; 84443; 85025; G0103